=== PATIENT | female | born 1985 | race Asian ===

== ENCOUNTER → 2018-12-22 09:04 | Emergency (ER) | payer BC, OTHER ==
[~2018-12-22 09:04] MED LIST: Butalb/Acetamin/Caff TAB* 1 TAB PO ONE
[2018-12-22 10:34] VITALS: BP 129/80
--- NOTE | 2018-12-22 10:39 | ED ---
Headache - HPI Summary HPI Summary: Patient is a 33-year-old female presenting to the ED with a migraine 2 days. Patient is 7 weeks . Patient states she has had this in the past which has been always improved with Tylenol and ibuprofen combination. She states due to her being 7 weeks she has not been taking ibuprofen and only the Tylenol instead. This has not helped her symptoms. She endorses photophobia. The headache is mainly located behind the right eye and into the occipital area. She denies any trauma. She does have a migraine history and typically will have photophobia with her migraines. She has not had a [facility] follow-up since finding out she was , however has an appointment in 2-1/ 2 weeks. She has not been sick recently, denies any pain over the eyes, throat , ears, CP or SOB. She states she is otherwise healthy and takes no medications. Symptoms improved after having acupuncture yesterday, but symptoms returned soon following. She states this is not worst headache of life and was not acute onset. Denies any blurry vision or double vision. - History Of Current Complaint Chief Complaint: EDHeadache Stated Complaint: SEVERE MIGRAINE/HEADACH/ 7 WEEKS PREG PER PT Time Seen by Provider: 12/22/18 09:21 Hx Obtained From: Patient Onset/Duration: Sudden Onset Initially Headache Was: Initial Pain Scale(0-10)= - 8 Currently Pain Is: Current Pain Scale(0-10)= - 8 Timing: Constant Character: Throbbing, Pressure, Migraine Location of Headache: Other: - orbital - R Aggravating Factor: Nothing Allevating Factors: Nothing Associated Signs And Symptoms: Negative - Risk Factors SAH Risk Factors: Negative Meningitis Risk Factors: Negative SDH Risk Factors: Negative Temporal Arteritis Risk Factors: Negative - Allergies/Home Medications Allergies/Adverse Reactions: Allergies Allergy/AdvReac Type Severity Reaction Status Date / Time No Known Allergies Allergy Verified 12/22/18 09:14 PMH/Surg Hx/FS Hx/Imm Hx Previously Healthy: Yes - Immunization History Hx Pertussis Vaccination: No Immunizations Up to Date: Yes Infectious Disease History: No Infectious Disease History: Denies: Traveled Outside the [place] in Last 30 Days - Social History Occupation: Employed Full-time Lives: With Family Alcohol Use: None Hx Substance Use: No Substance Use Type: Reports: None Hx Tobacco Use: No Smoking Status (MU): Never Smoked Tobacco Review of Systems Constitutional: Negative Negative: Fever, Chills, Fatigue, Skin Diaphoresis Positive: Photophobia Negative: Epistaxis, Dental Pain Negative: Palpitations, Chest Pain Genitourinary: Negative Positive: no symptoms reported, see HPI Negative: Arthralgia, Myalgia Skin: Negative Positive: Headache All Other Systems Reviewed And Are Negative: Yes Physical Exam Triage Information Reviewed: Yes Vital Signs On Initial Exam: Initial Vitals Temp Pulse Resp BP Pulse Ox 97.8 F 67 18 127/81 99 12/22/18 09:08 12/22/18 09:08 12/22/18 09:08 12/22/18 09:08 12/22/18 09:08 Vital Signs Reviewed: Yes Appearance: Positive: Well-Appearing, Well-Nourished Skin: Positive: Warm, Skin Color Reflects Adequate Perfusion Head/Face: Positive: Normal Head/Face Inspection Eyes: Positive: EOMI, SUGEY, Conjunctiva Clear, Other: - no tearing from the eye Neck: Positive: Supple, No Lymphadenopathy Respiratory/Lung Sounds: Positive: Clear to Auscultation, Breath Sounds Present Cardiovascular: Positive: Pulses are Symmetrical in both Upper and Lower Extremities Musculoskeletal: Positive: Strength/ROM Intact Neurological: Positive: Speech Normal Diagnostics - Vital Signs Vital Signs Temp Pulse Resp BP Pulse Ox 12/22/18 09:08 97.8 F 67 18 127/81 99 - Laboratory Lab Statement: Any lab studies that have been ordered have been reviewed, and results considered in the medical decision making process. Headache Course/Dx - Course Course Of Treatment: During the patient's course of treatment, she is evaluated for an ocular migraine headache. I have offered an IV with medications and blood work, however patient declines. She would like to start off with oral medications. According to UTD first line therapy is tylenol and if no improvement, second line medications is fioricet. She is given fioricet. This with improvement. I have given her instructions for care at home and this is prescribed to her - she will continue to take tylenol FIRST and assess for improvement. She understands to not take both medications together. - Diagnoses Differential Diagnosis/HQI/PQRI: Migraine Provider Diagnoses: Migraine Discharge - Sign-Out/Discharge Documenting (check all that apply): Patient Departure Patient Received Moderate/Deep Sedation with Procedure: No - Discharge Plan Condition: Stable Disposition: HOME Prescriptions: Butalb/Acetamin/Caff TAB* [Fioricet TAB*] 1 tab PO Q6H PRN #12 tab MDD 4 PRN Reason: Headache Patient Education Materials: Migraine Headache (ED) Referrals: Samy Montague MD [Primary Care Provider] - Additional Instructions: Drink plenty of fluids Tyelnol 650mg three times daily for headache If symptoms are not improving - you may use Fioricet for relief Moist heat to the eye and sinuses Humidifier in the home will help Please follow up with OBGYN - Billing Disposition and Condition Condition: STABLE Disposition: Home
== END | disposition home or self-care (01) ==
LOC: ED 09:04
DX: O26.91 Pregnancy related conditions, unspecified, first trimester (principal); G43.909 Migraine, unspecified, not intractable, without status migrainosus; Z3A.01 Less than 8 weeks gestation of pregnancy
CPT/HCPCS: 99282; A9270-GY